=== PATIENT | female | born 1995 | race Hispanic/Latino ===

== ENCOUNTER 2016-11-14 16:48 | Emergency (ER) | payer OTHER ==
[~2016-11-14] VITALS: Ht 157.5 cm; Wt 81.8 kg
[~2016-11-14 16:48] MED LIST: NPR500T PO
[2016-11-14 16:50] VITALS: BP 132/80; PULSE 65; RESP 20; O2SAT 98
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
[2016-11-14] MEDS ORDERED: Lidocaine-Epi-Tetracaine Solution 3 mL Syringe TOPICAL ONE (17:45)
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
== END 2016-11-14 18:54 | disposition home or self-care (01) ==
LOC: SED 16:48
DX: S20.219A Contusion of unspecified front wall of thorax, initial encounter (principal); S00.81XA Abrasion of other part of head, initial encounter; Y04.0XXA Assault by unarmed brawl or fight, initial encounter; Y93.89 Activity, other specified; Y92.9 Unspecified place or not applicable; Y99.8 Other external cause status
CPT/HCPCS: 71020; 81025; 96372; 99284; J1885